=== PATIENT | female | born 1990 | race Native Hawaiian/Other Pacific Islander ===

== ENCOUNTER 2018-10-13 04:09 | Emergency (ER) | payer OTHER ==
[~2018-10-13] VITALS: Ht 157.5 cm; Wt 54.4 kg
[2018-10-13 04:15] VITALS: BP 126/84
--- NOTE | 2018-10-13 05:08 | NUR ---
Patient discharged to home in stable condition. Written and verbal after care instructions given. Patient verbalizes understanding of instruction. Pt ambulatory with a steady gait
[2018-10-13 05:26] LABS: ALBUMIN 3.6 g/dL (3.4-5.0); BILIRUBIN,DIRECT 0.1 mg/dL (0.0-0.2); BILIRUBIN,TOTAL 0.3 mg/dL (0.2-1.0); TOTAL PROTEIN, SERUM 7.3 g/dL (6.4-8.2)
== END 2018-10-13 05:10 | disposition home or self-care (01) ==
LOC: ER 04:12
DX: Z77.21 Contact with and (suspected) exposure to potentially hazardous body fluids (principal); Z60.2 Problems related to living alone
CPT/HCPCS: 36415; 80076-TC; 86706; 86803; 87806

== ENCOUNTER 2019-03-05 13:05 | Emergency (ER) | payer BC, OTHER ==
[~2019-03-05] VITALS: Ht 160 cm; Wt 45.4 kg
[2019-03-05] MEDS ORDERED: ONDANSETRON 4 MG TAB.RAPDIS SL ONE (13:30)
[2019-03-05] MEDS ORDERED: ACETAMINOPHEN 325 MG TABLET PO ONE (13:30)
[2019-03-05] MEDS ORDERED: ACETAMINOPHEN ES 500 MG TABLET ONE (13:55)
[2019-03-05] MEDS ORDERED: ONDANSETRON 4 MG TAB.RAPDIS ONE (13:55)
--- NOTE | 2019-03-05 14:10 | NUR ---
TOOK OVER PT CARE. PT BIB "[facility] [employer]; +LOC, HEMATOMA ON FOREHEAD NOTED UPON ASSESSMENT. PT IN BED ON MONIOTR AND PULSE OX. NO ACUTE DISTRESS NOTED. WILL CONTINUE TO MONITOR.
--- NOTE | 2019-03-05 15:01 | NUR ---
Patient is resting comfortably in bed. Easily aroused. VSS.
--- NOTE | 2019-03-05 15:13 | NUR ---
Patient discharged to home in stable condition. Written and verbal after care instructions given. Patient verbalizes understanding of instruction and RX. PT ambulatory with a steady gait. VSS.
[2019-03-05 15:17] VITALS: BP 116/62
== END 2019-03-05 15:27 | disposition home or self-care (01) ==
LOC: ER 13:06
DX: S06.899A Other specified intracranial injury with loss of consciousness of unspecified duration, initial encounter (principal); S00.83XA Contusion of other part of head, initial encounter; S00.511A Abrasion of lip, initial encounter; R11.0 Nausea; R42 Dizziness and giddiness; Z60.2 Problems related to living alone; W18.39XA Other fall on same level, initial encounter; Y93.89 Activity, other specified; Y92.89 Other specified places as the place of occurrence of the external cause; Y99.8 Other external cause status
CPT/HCPCS: 70450; 84703; 99284; Q0162

== ENCOUNTER 2019-03-15 01:14 | Emergency (ER) | payer BC, OTHER ==
[~2019-03-15] VITALS: Ht 157.5 cm; Wt 54.4 kg
[2019-03-15 01:18] VITALS: BP 146/80
[2019-03-15] MEDS ORDERED: OSELTAMIVIR PHOSPHATE 75 MG CAPSULE ONE (02:11)
[2019-03-15] MEDS ORDERED: OSELTAMIVIR PHOSPHATE 75 MG CAPSULE PO ONE (02:30)
== END 2019-03-15 02:17 | disposition home or self-care (01) ==
LOC: ER 01:16
DX: B34.9 Viral infection, unspecified (principal); J11.1 Influenza due to unidentified influenza virus with other respiratory manifestations; Z60.2 Problems related to living alone
CPT/HCPCS: 86403-TC; 87070-TC

== ENCOUNTER 2020-01-01 00:07 | Emergency (ER) | payer BC, OTHER ==
[~2020-01-01] VITALS: Ht 157.5 cm; Wt 54.4 kg
[2020-01-01 00:08] VITALS: BP 125/61
== END 2020-01-01 00:54 | disposition home or self-care (01) ==
LOC: ER 00:07
DX: Z20.828 Contact with and (suspected) exposure to other viral communicable diseases (principal)
CPT/HCPCS: 87426; 99283; C9803

== ENCOUNTER 2020-03-16 05:04 | Emergency (ER) | payer OTHER ==
[~2020-03-16] VITALS: Ht 157.5 cm; Wt 54.4 kg
[2020-03-16 05:05] VITALS: BP 127/89
== END 2020-03-16 05:58 | disposition home or self-care (01) ==
LOC: ER 05:06
DX: Z20.822 Contact with and (suspected) exposure to COVID-19 (principal)
CPT/HCPCS: 87426; 99283; C9803; U0003